=== PATIENT | male | born 1960 | race Caucasian/White ===

== ENCOUNTER 2016-12-14 17:53 | Observation (INO) | payer OTHER ==
[~2016-12-14] VITALS: Ht 177.8 cm; Wt 64.9 kg
[2016-12-14 18:42] LABS: RED BLOOD COUNT 4.31 M/UL (4.20-5.50); WHITE BLOOD COUNT 12.1 K/UL (4.5-11.0)
[2016-12-14 19:18] LABS: BUN/CREATININE RATIO 20 (0-10)
[2016-12-14] MEDS ORDERED: ZANTAC150 MG PO (23:41)
[2016-12-14] MEDS ORDERED: PROTONIX 40 MG40 M1 PO (23:41)
[2016-12-14] MEDS ORDERED: NEURONTIN100 MG PO (23:42)
[2016-12-15] MEDS ORDERED: INCRUSE ELLI62.5 MCG INH (12:49)
[2016-12-15] MEDS ORDERED: SYMBICORT 160-1 INHA INH (12:49)
[2016-12-15] MEDS ORDERED: LEVAQUIN500 MG PO (12:51)
[2016-12-15] MEDS ORDERED: COMBIVENT0.074 GM/I INH (12:52)
[2017-04-19] MEDS ORDERED: ZANTAC150 MG PO (10:50)
[2017-04-19] MEDS ORDERED: IPRAT-ALBUT 0.5-3 ML INH (10:54)
[2017-04-21] MEDS ORDERED: LEVAQUIN500 MG PO (12:29)
[2017-04-21] MEDS ORDERED: MEGACE 400400 MG/10 PO (12:32)
[2017-04-21] MEDS ORDERED: SPIRIVA18 MCG INH (12:36)
[2017-04-21] MEDS ORDERED: TYLENOL 325MG325 MG PO (12:37)
[2017-04-21] MEDS ORDERED: ROBITUSSIN DM U10 ML PO (13:20)
[2017-04-21] MEDS ORDERED: MEDROL DOSEPAK 24 MG PO (13:23)
[2017-04-21] MEDS ORDERED: MEDROL4 MG PO (13:27)
[2017-05-13] MEDS ORDERED: KLONOPIN TAB 00.5 MG PO (23:09)
[2017-05-15] MEDS ORDERED: CEFUROXIME500 MG PO (13:30)
[2017-05-15] MEDS ORDERED: MEDROL4 MG PO (13:30)
[2017-05-15] MEDS ORDERED: MUCINEX600 MG PO (13:31)
== END 2016-12-15 16:00 | disposition home or self-care (01) ==
LOC: ER1 17:53 → ZEROF 22:31 → MED SURG 4 22:31
PROVIDERS: Emergency Medicine; ADMIT Internal Medicine
DX: J44.1 Chronic obstructive pulmonary disease with (acute) exacerbation (principal); J44.0 Chronic obstructive pulmonary disease with (acute) lower respiratory infection; J20.9 Acute bronchitis, unspecified; R09.02 Hypoxemia; K21.9 Gastro-esophageal reflux disease without esophagitis; F17.210 Nicotine dependence, cigarettes, uncomplicated; Z79.899 Other long term (current) drug therapy
CPT/HCPCS: 36415; 36600; 71010; 80053; 81001; 82550; 82553; 82803; 83605; 83690; 83874; 84484; 85025; 85379; 87040; 87070; 87086; 87205; 93005; 94640; 94664; 96361; 96374; 96375; 96376; 99285; G0378; J1956; J2270; J2405; J2920; J2930; J7050; Q9962

== ENCOUNTER 2017-02-12 23:17 | Emergency (ER) | payer OTHER ==
[~2017-02-12 23:17] MED LIST: COMBIVENT0.074 GM/I INH; INCRUSE ELLI62.5 MCG INH; LEVAQUIN500 MG PO; NEURONTIN100 MG PO; PROTONIX 40 MG40 M1 PO; SYMBICORT 160-1 INHA INH; ZANTAC150 MG PO
[2017-02-13 02:06] LABS: HEMOGLOBIN 15.2 gm/dl (14.0-17.5); RED BLOOD COUNT 4.67 M/UL (4.20-5.50); WHITE BLOOD COUNT 17.9 K/UL (4.5-11.0)
[2017-02-13 02:27] LABS: BUN/CREATININE RATIO 21 (0-10)
[2017-04-19] MEDS ORDERED: ZANTAC150 MG PO (10:50)
[2017-04-19] MEDS ORDERED: IPRAT-ALBUT 0.5-3 ML INH (10:54)
[2017-04-21] MEDS ORDERED: LEVAQUIN500 MG PO (12:29)
[2017-04-21] MEDS ORDERED: MEGACE 400400 MG/10 PO (12:32)
[2017-04-21] MEDS ORDERED: SPIRIVA18 MCG INH (12:36)
[2017-04-21] MEDS ORDERED: TYLENOL 325MG325 MG PO (12:37)
[2017-04-21] MEDS ORDERED: ROBITUSSIN DM U10 ML PO (13:20)
[2017-04-21] MEDS ORDERED: MEDROL DOSEPAK 24 MG PO (13:23)
[2017-04-21] MEDS ORDERED: MEDROL4 MG PO (13:27)
[2017-05-13] MEDS ORDERED: KLONOPIN TAB 00.5 MG PO (23:09)
[2017-05-15] MEDS ORDERED: MEDROL4 MG PO (13:30)
[2017-05-15] MEDS ORDERED: CEFUROXIME500 MG PO (13:30)
[2017-05-15] MEDS ORDERED: MUCINEX600 MG PO (13:31)
== END 2017-02-13 04:00 | disposition home or self-care (01) ==
LOC: ER1 23:17
PROVIDERS: Physician Assistant
DX: J44.1 Chronic obstructive pulmonary disease with (acute) exacerbation (principal); J20.9 Acute bronchitis, unspecified; E11.9 Type 2 diabetes mellitus without complications; J45.909 Unspecified asthma, uncomplicated; I50.9 Heart failure, unspecified; F17.210 Nicotine dependence, cigarettes, uncomplicated; Z99.81 Dependence on supplemental oxygen; Z79.899 Other long term (current) drug therapy
CPT/HCPCS: 36415; 36600; 71020; 80053; 82550; 82553; 82803; 83874; 83880; 84484; 85025; 85379; 87040; 93005; 94640; 94664; 96374; 99285; J2930